=== PATIENT | male | born 2000 | race Caucasian/White ===

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

== ENCOUNTER 2024-08-20 16:39 | Emergency (ER) | payer BC, OTHER ==
[2024-08-20] MEDS ORDERED: Acetaminophen 500 MG Tab PO ONE (17:24)
[2024-08-20] MEDS ORDERED: Dexamethasone 4 MG Tab PO ONE (17:24)
[2024-08-20] MEDS ORDERED: Ibuprofen 600 MG Tab PO ONE (17:24)
[2024-08-20 18:02] LABS: BASOPHILS ABSOLUTE AUTO 0.03 K/uL (0.00-0.20); BASOPHILS PERCENT AUTO 0.4 % (0.0-1.0); EOSINOPHILS ABSOLUTE AUTO 0.07 K/uL (0.00-0.45); HEMATOCRIT 42.4 % (42.0-52.0); HEMOGLOBIN 15.5 g/dL (14.0-18.0); IMMATURE GRAN ABSOLUTE AUTO 0.06 K/uL (0.00-0.05); IMMATURE GRAN PERCENT AUTO 0.9 % (0.0-0.4); LYMPHOCYTES PERCENT AUTO 35.5 % (24.0-44.0); MEAN CORPUSCULAR HEMOGLOBIN 31.4 pg (28.0-32.0); MEAN CORPUSCULAR HGB CONC 36.6 g/dL (32.0-36.0); MEAN PLATELET VOLUME 9.2 fL (9.4-12.4); MONOCYTES ABSOLUTE AUTO 0.52 K/uL (0.00-0.80); MONOCYTES PERCENT AUTO 7.4 % (0.0-8.0); NEUTROPHILS ABSOLUTE AUTO 3.86 K/uL (1.80-7.70); NEUTROPHILS PERCENT AUTO 54.8 % (41.0-71.0); PLATELET COUNT,PLT 197 K/uL (150-400); RED BLOOD CELL COUNT 4.93 M/uL (4.52-5.90); WHITE BLOOD CELL COUNT,WBC 7.04 K/uL (3.9-11.3)
[2024-08-20 18:45] LABS: A/G RATIO 1.5 (0.9-1.6); ALANINE AMINOTRANSFERASE,ALT 44 IU/L (14-63); ALBUMIN 4.1 g/dL (3.4-5.0); ALKALINE PHOSPHATASE 72 U/L (46-116); ASPARTATE AMNIOTRANSFERASE,AST 26 IU/L (15-37); BILIRUBIN TOTAL 0.5 mg/dL (0.2-1.0); BLOOD UREA NITROGEN,BUN 19 mg/dL (7.0-18.0); CALCIUM 9.3 mg/dL (8.5-10.1); CHLORIDE,CL 106 mmol/L (98-107); CREATININE 1.3 mg/dL (0.8-1.3); EST CRCL DRUG DOSING (CG) 100.73 mL/min; GLUCOSE RANDOM 104 mg/dL (74-106); LIPASE 28 U/L (16-77); POTASSIUM,K 3.7 mmol/L (3.5-5.1); PRO B-TYPE NATRIUR PEPT,BNPPRO 22 pg/mL (0-125); PROTEIN TOTAL,TP 6.8 g/dL (6.4-8.2); SODIUM,NA 142 mmol/L (136-148)
[2024-08-20 18:47] LABS: ESTIMATED GFR 80 mL/min (>60)
== END 2024-08-20 19:57 | disposition left against medical advice (07) ==
LOC: MW.ED 16:39
DX: R07.89 Other chest pain (principal); F41.9 Anxiety disorder, unspecified; R06.02 Shortness of breath; J02.9 Acute pharyngitis, unspecified; R13.10 Dysphagia, unspecified
CPT/HCPCS: 36415; 71045; 71045-26; 80053; 83690; 83880; 84484; 85025; 87428-QW; 87651-QW; 99285

== ENCOUNTER 2025-03-08 17:03 | Emergency (ER) | payer BC, OTHER ==
[2025-03-08] MEDS: Acetaminophen 500 MG Tab PO ONE (17:28)
[2025-03-08] MEDS: Ibuprofen 600 MG Tab PO ONE (17:28)
== END 2025-03-08 18:28 | disposition home or self-care (01) ==
LOC: MW.ED 17:03
DX: S93.402A Sprain of unspecified ligament of left ankle, initial encounter (principal); Z91.048 Other nonmedicinal substance allergy status; Z75.3 Unavailability and inaccessibility of health-care facilities; X50.1XXA Overexertion from prolonged static or awkward postures, initial encounter
CPT/HCPCS: 73610; 99283; A9270